=== PATIENT | male | born 1980 | race Caucasian/White ===

== ENCOUNTER 2021-11-10 16:04 | Emergency (ER) | payer MEDICAID ==
[2021-11-10 16:15] VITALS: BP 177/100
--- NOTE | 2021-11-10 16:32 | ED Physician Documentation ---
History of Present Illness - Stated complaint Stated Complaint: VOM/DIARRHEA/ABD PX - Chief complaint Chief Complaint: Abd Pain - Additonal information Additional information: 41-year-old male presents emergency department for evaluation of acute onset upper abdominal pain nausea vomiting and diarrhea. He reports bright red blood per rectum and significant abdominal discomfort. No pertinent past surgical history. Denies that he has NSAID overuse though he occasionally takes Aleve for back pain. No fevers. No history of diverticulitis. In the room he is appearing very uncomfortable guarding his abdomen. Review of Systems Constitutional: denies: Fever, Chills Cardiac: reports: Reviewed and negative Respiratory: reports: Reviewed and negative GI: reports: Abdominal Pain, Nausea, Vomiting, Diarrhea : reports: Reviewed and negative Skin: reports: Reviewed and negative Musculoskeletal: reports: Reviewed and negative Neurologic: reports: Reviewed and negative Psychiatric: reports: Reviewed and negative PD PAST MEDICAL HISTORY - Present Medications Home Medications: Ambulatory Orders Medication Instructions Recorded Confirmed Ondansetron Odt [Zofran] 4 mg TL Q6H PRN #10 tablet 11/10/21 Pantoprazole Sodium [Protonix] 40 mg PO DAILY #30 tab 11/10/21 - Allergies Allergies/Adverse Reactions: Allergies Allergy/AdvReac Type Severity Reaction Status Date / Time Iodinated Contrast Media Allergy Unknown Verified 11/10/21 16:15 latex Allergy Unknown Verified 11/10/21 16:15 morphine Allergy Unknown Verified 11/10/21 16:15 PD ED PE NORMAL - General General: Alert and oriented X 3, Well developed/nourished. No: No acute distress (Appears uncomfortable and in pain) - HEENT HEENT: Atraumatic - Neck Neck: Supple, no meningeal sign, No adenopathy - Cardiac Cardiac: RRR, No murmur - Respiratory Respiratory: No respiratory distress, Clear bilaterally - Abdomen Abdomen: Normal bowel sounds, Soft. No: Non tender (Tenderness in the epigastrium and left lower quadrant left upper quadrant. No guarding or rebound.), Non distended - Rectal Rectal: Other (Chaperoned rectal exam reveals no blood in the vault and no findings of hematochezia) - Back Back: No CVA TTP, No spinal TTP - Derm Derm: Normal color, Warm and dry, No rash - Extremities Extremities: No deformity, No tenderness to palpate, Normal ROM s pain - Neuro Neuro: Alert and oriented X 3, divine healer 2-12 intact Eye Opening: Spontaneous Motor: Obeys Commands Verbal: Oriented GCS Score: 15 - Psych Psych: Normal mood Results - Vitals Vitals: Vital Signs - 24 hr 11/10/21 11/10/21 16:12 16:28 Temperature 36.1 C L Heart Rate 46 L Respiratory 20 18 Rate Blood Pressure 177/100 H O2 Saturation 95 Oxygen O2 Source Room air - Labs Labs: Laboratory Tests 11/10/21 11/10/21 11/10/21 16:28 16:28 16:28 WBC 13.2 H RBC 5.41 Hgb 16.2 Hct 49.7 MCV 91.9 MCH 29.9 MCHC 32.6 RDW 13.1 Plt Count 312 MPV 10.6 Neut # (Auto) 11.6 H Lymph # (Auto) 1.0 L [place] # (Auto) 0.6 Eos # (Auto) 0.0 Baso # (Auto) 0.0 Absolute Nucleated RBC 0.00 Nucleated RBC % 0.0 PT 10.7 INR 1.0 Sodium 142 Potassium 4.1 Chloride 102 Carbon Dioxide 28 Anion Gap 12.0 BUN 17 Creatinine 0.8 Estimated GFR (MDRD) 108 Glucose 150 H Calcium 10.1 Total Bilirubin 0.8 AST 33 ALT 74 H Alkaline Phosphatase 68 Total Protein 8.5 H Albumin 4.7 Globulin 3.8 Albumin/Globulin Ratio 1.2 Lipase 27 - Rads (name of study) CT abd Radiology: Final report received (No acute abdominal or pelvic abnormality) PD MEDICAL DECISION MAKING - ED course Complexity details: reviewed results, re-evaluated patient, considered differential, d/w patient ED course: 41-year-old male presents emergency department for evaluation of acute onset nausea and vomiting as well as upper abdominal pain. He reports bloody stools and vomiting. He does admit to smoking cannabis but does not feel that cannabis is the cause of his vomiting. Denies any sick contacts. No pertinent past surgical history. On presentation he was actively retching. He had reported bloody stools but my digital rectal exam found an empty vault without hematochezia. On exam he was tender in the upper abdomen without guarding or rebound. Screening labs showed a modest leukocytosis. I suspect that this is marginalization the rest of his screening CBC and chemistry was negative. Patient declined to provide us a urine sample today. A CT of the abdomen did not show any worrisome findings. We were able to achieve symptom control by giving IV fluids, Zofran followed by Compazine. He initially got very drowsy with the Dilaudid but on reexam is feeling markedly better. I discussed with the patient that the likely etiology of his symptoms could be viral though cannabis induced vomiting does remain on the differential. Given improved symptoms patient will be discharged with a prescription for some Zofran. We will follow-up closely with primary care provider as we discussed that any hematic emesis or bloody stools should be followed with an EGD or colonoscopy. Otherwise emergent return precautions discussed Departure - Departure Disposition: Home, Self Care Clinical Impression: Vomiting Qualifiers: Vomiting type: unspecified Nausea presence: with nausea Qualified Code(s): R11.2 - Nausea with vomiting, unspecified Abdominal pain Qualifiers: Abdominal location: epigastric Qualified Code(s): R10.13 - Epigastric pain Condition: Stable Record reviewed to determine appropriate education?: Yes Instructions: ED Vomiting Diarrhea Nonspecific Ad Follow-Up: SAMMI BENNETT MD [Primary Care Provider] - Prescriptions: Pantoprazole Sodium [Protonix] 40 mg PO DAILY #30 tab Ondansetron Odt [Zofran] 4 mg TL Q6H PRN #10 tablet PRN Reason: Nausea / Vomiting Comments: Abraham you are seen today in the emergency department for sudden abdominal pain nausea and vomiting. You reported bloody stools and diarrhea however when we did a rectal exam there was no blood. Today in the emergency department your screening blood count was normal. There was no anemia. Your electrolytes were also essentially normal. We did do a CT of your abdomen that did not show any findings of appendicitis, bowel obstruction, inflammation of your gallbladder or stomach. We will gave you some IV fluids as well as 2 nausea medicines which seem to have improved your symptoms markedly. The cause of your nausea and vomiting is likely a virus. I have sent a prescription for Zofran, and nausea medicine to the [facility] in [place]. I do recommend over the next 24 hours that you drink a clear liquid diet. If vomiting better after 12 to 24 hours you can slowly advance your diet with bananas, rice, applesauce and toast. Please discuss this ED visit with your primary care doctor. Any reported bloody vomit or bloody stools should be seen by primary doctor for referral for possible EGD or colonoscopy in which they would place a camera into your throat and your rectum to look for sources of bleeding such as ulcers or polyps. If despite the Zofran at home you find that your vomiting persists, you develop fevers, have severe or different abdominal pain then please return immediately to the ER for second evaluation.
[2021-11-10] MEDS: ONDANSETRON 4 MG/2 ML VIAL IVP STA (16:38)
[2021-11-10] MEDS: HYDROmorphone 1 MG/ML CARPUJECT IVP STA (16:39)
[2021-11-10 16:41] LABS: PT - PROTHROMBIN TIME 10.7 secs (9.9-12.6)
[2021-11-10] MEDS: SODIUM CHLORIDE 0.9% 1,000 ML IV STA (16:41)
[2021-11-10] MEDS: PANTOPRAZOLE 40 MG VIAL IVP STA (16:41)
[2021-11-10 16:48] LABS: ALBUMIN 4.7 g/dL (3.2-5.5); ALBUMIN/GLOBULIN RATIO 1.2 (1.0-2.2); BILIRUBIN,TOTAL 0.8 mg/dL (0.2-1.0); CALCIUM 10.1 mg/dL (8.5-10.3); CREATININE 0.8 mg/dL (0.6-1.2); POTASSIUM 4.1 mmol/L (3.5-5.0); TOTAL PROTEIN 8.5 g/dL (6.7-8.2)
[2021-11-10 16:50] LABS: BASOPHILS % (AUTO) 0.3 %; HCT - HEMATOCRIT 49.7 % (42.0-52.0); HGB - HEMOGLOBIN 16.2 g/dL (14.0-18.0); LYMPHOCYTES % (AUTO) 7.3 %; MEAN CORPUSCULAR HEMOGLOBIN 29.9 pg (27.0-31.0); MEAN CORPUSCULAR HGB CONC 32.6 g/dL (32.0-36.0); MEAN CORPUSCULAR VOLUME 91.9 fL (80.0-94.0); MEAN PLATELET VOLUME 10.6 fL (7.4-11.4); MONOCYTES # (AUTO) 0.6 10^3/uL (0.0-1.0); MONOCYTES % (AUTO) 4.4 %; NEUTROPHILS # (AUTO) 11.6 10^3/uL (1.5-6.6); NEUTROPHILS % (AUTO) 87.7 %; PLT - PLATELET COUNT 312 10^3/uL (130-450); RED BLOOD COUNT 5.41 10^6/uL (4.70-6.10); RED CELL DISTRIBUTION WIDTH 13.1 % (12.0-15.0); WHITE BLOOD COUNT 13.2 x10^3/uL (4.8-10.8)
[2021-11-10] MEDS ORDERED: IOVERSOL 320 50 ML VIAL ONE (17:24)
[2021-11-10] MEDS: PROCHLORPERAZINE 10 MG/2 ML VIAL IVP STA (17:33)
--- NOTE | 2021-11-10 17:55 | CT Report ---
PROCEDURE: Abdomen/Pelvis WO INDICATIONS: n/v/d; bloody stool TECHNIQUE: After the administration of contrast, 5 mm thick sections acquired from the diaphragms to the sym physis. 5 mm thick coronal and sagittal reformats were acquired. For radiation dose reduction, the following was used: automated exposure control, adjustment of mA and/or kV according to patient size . COMPARISON: None. FINDINGS: Image quality: Excellent. ABDOMEN: Lung bases: Lung bases are clear. Heart size is normal. Solid organs: Liver: The liver has no mass or intrahepatic biliary ductal dilatation. The portal vein and hepatic veins are patent. Biliary: The gallbladder has no gallstones, pericholecystic fluid, gallbladder wall thickening, or zazeuta rrounding inflammatory change. Pancreas: The pancreas has no mass or ductal dilatation. No surrounding inflammation. Spleen: Normal size. No mass. Adrenal glands: No hypertrophy or nodules. Kidneys: No obstructive calculus or hydronephrosis. No solid mass. No cystic mass. Bowel: The distal esophagus and stomach are normal. The small bowel has a normal caliber and appeara nce. The terminal ileum is normal. The large bowel has a normal caliber and appearance. The appendi x is normal Free air/free fluid: No free air or free fluid. Abdominal wall: No abdominal wall mass or hernia. Retroperitoneum: No retroperitoneal or mesenteric adenopathy by size criteria. Aorta and inferior ve na cava are normal in size. Lymph nodes: No adenopathy. Bones: No suspicious bony lesions. No vertebral body compression fractures. Degenerative changes are mild multilevel. Degenerative disc disease at L5-S1. PELVIS: Genitourinary: Bladder wall thickness is normal. Miscellaneous: No inguinal hernias or adenopathy. IMPRESSION: No acute abdominal or pelvic abnormality. Reviewed by: Wil Rowe on 11/10/2021 5:53 PM PDT Approved by: Wil Rowe on 11/10/2021 5:53 PM PDT Station ID: [id number]
== END 2021-11-10 18:42 | disposition home or self-care (01) ==
LOC: ED 16:04
DX: R11.2 Nausea with vomiting, unspecified (principal); R10.13 Epigastric pain
CPT/HCPCS: 36415; 74176; 80053; 83690; 85025; 85610; 96374; 96375; 99283; 99284; J1170

== ENCOUNTER 2021-11-12 13:04 | Emergency (ER) | payer MEDICAID ==
[2021-11-12] MEDS: ONDANSETRON ODT 4 MG TABLET TL STA (13:29)
[2021-11-12 13:43] LABS: BASOPHILS # (AUTO) 0.1 10^3/uL (0.0-0.1); BASOPHILS % (AUTO) 0.5 %; EOSINOPHILS % (AUTO) 0.4 %; HCT - HEMATOCRIT 47.1 % (42.0-52.0); HGB - HEMOGLOBIN 15.9 g/dL (14.0-18.0); LYMPHOCYTES # (AUTO) 1.2 10^3/uL (1.5-3.5); LYMPHOCYTES % (AUTO) 12.1 %; MEAN CORPUSCULAR HEMOGLOBIN 30.5 pg (27.0-31.0); MEAN CORPUSCULAR HGB CONC 33.8 g/dL (32.0-36.0); MEAN CORPUSCULAR VOLUME 90.4 fL (80.0-94.0); MEAN PLATELET VOLUME 10.1 fL (7.4-11.4); MONOCYTES # (AUTO) 0.7 10^3/uL (0.0-1.0); MONOCYTES % (AUTO) 7.1 %; NEUTROPHILS # (AUTO) 8.1 10^3/uL (1.5-6.6); NEUTROPHILS % (AUTO) 79.6 %; PLT - PLATELET COUNT 284 10^3/uL (130-450); RED BLOOD COUNT 5.21 10^6/uL (4.70-6.10); RED CELL DISTRIBUTION WIDTH 12.7 % (12.0-15.0); WHITE BLOOD COUNT 10.2 x10^3/uL (4.8-10.8)
[2021-11-12 13:52] LABS: ALBUMIN 4.4 g/dL (3.2-5.5); ALBUMIN/GLOBULIN RATIO 1.3 (1.0-2.2); BILIRUBIN,TOTAL 0.8 mg/dL (0.2-1.0); CALCIUM 9.2 mg/dL (8.5-10.3); CREATININE 0.7 mg/dL (0.6-1.2); POTASSIUM 3.6 mmol/L (3.5-5.0); TOTAL PROTEIN 7.7 g/dL (6.7-8.2)
--- NOTE | 2021-11-12 15:13 | ED Physician Documentation ---
PD HPI ABD PAIN - Stated complaint Stated Complaint: ABD PX/VOMITING - Chief complaint Chief Complaint: Abd Pain - History obtained from History obtained from: Patient - Additional information Additional information: Previously healthy 41-year-old gentleman developed upper abdominal pain and vomiting 2 days ago. Seen by my partner and feeling better after meds here. Work-up was notable for a white count of 13,[address] that was normal. He was unable to fill the prescriptions until today, he had just gone to the pharmacy and the pain and vomiting recurred and he vomited them all up. He pre sents with persistent burning upper abdominal pain which is nonradiating. He denies ongoing marijuana use but did use a few weeks ago. Review of Systems Ten Systems: 10 systems reviewed and negative Constitutional: reports: Sweats. denies: Fever, Chills Throat: denies: Dental pain / toothache, Sore throat Cardiac: denies: Chest pain / pressure, Palpitations Respiratory: denies: Dyspnea, Cough PD PAST MEDICAL HISTORY - Past Medical History Past Medical History: No Cardiovascular: None Respiratory: None Neuro: None Endocrine/Autoimmune: None GI: Other : None HEENT: None Psych: None Musculoskeletal: None Derm: None - Past Surgical History Past Surgical History: No - Present Medications Home Medications: Ambulatory Orders Medication Instructions Recorded Confirmed Ondansetron Odt [Zofran] 4 mg TL Q6H PRN #10 tablet 11/10/21 11/12/21 Pantoprazole Sodium [Protonix] 40 mg PO DAILY #30 tab 11/10/21 11/12/21 HYDROcod/ACETAM 5/325 [[place] 5/325] 1 - 2 tab PO Q6H PRN #10 tablet 11/12/21 - Allergies Allergies/Adverse Reactions: Allergies Allergy/AdvReac Type Severity Reaction Status Date / Time Iodinated Contrast Media Allergy Unknown Verified 11/12/21 13:18 latex Allergy Unknown Verified 11/12/21 13:18 morphine Allergy Unknown Verified 11/12/21 13:18 - Social History Does the pt smoke?: No Smoking Status: Never smoker Does the pt drink ETOH?: No Does the pt have substance abuse?: No - Immunizations Immunizations are current?: Yes - POLST Patient has POLST: No PD ED PE NORMAL - Vitals Vital signs reviewed: Yes - General General: Alert and oriented X 3, Other (uncomfortable) - HEENT HEENT: PERRL, EOMI - Neck Neck: Supple, no meningeal sign, No bony TTP - Cardiac Cardiac: RRR, No murmur - Respiratory Respiratory: No respiratory distress, Clear bilaterally - Abdomen Abdomen: Normal bowel sounds, Soft, Non tender - Back Back: No CVA TTP, No spinal TTP - Derm Derm: Normal color, Warm and dry - Extremities Extremities: No edema, No calf tenderness / cord - Neuro Neuro: Alert and oriented X 3, Normal speech Results - Vitals Vitals: Vital Signs - 24 hr 11/12/21 11/12/21 11/12/21 13:15 15:13 17:06 Temperature 36.6 C 36.7 C Heart Rate 61 54 L 66 Respiratory 20 18 18 Rate Blood Pressure 156/93 H 154/86 H 135/78 H O2 Saturation 99 96 95 Oxygen O2 Source Room air - Labs Labs: Laboratory Tests 11/12/21 11/12/21 11/12/21 13:33 13:33 15:43 WBC 10.2 RBC 5.21 Hgb 15.9 Hct 47.1 MCV 90.4 MCH 30.5 MCHC 33.8 RDW 12.7 Plt Count 284 MPV 10.1 Neut # (Auto) 8.1 H Lymph # (Auto) 1.2 L [place] # (Auto) 0.7 Eos # (Auto) 0.0 Baso # (Auto) 0.1 Absolute Nucleated RBC 0.00 Nucleated RBC % 0.0 Sodium 139 Potassium 3.6 Chloride 101 Carbon Dioxide 26 Anion Gap 12.0 BUN 16 Creatinine 0.7 Estimated GFR (MDRD) 126 Glucose 144 H Calcium 9.2 Total Bilirubin 0.8 AST 23 ALT 54 Alkaline Phosphatase 58 Total Protein 7.7 Albumin 4.4 Globulin 3.3 Albumin/Globulin Ratio 1.3 Lipase 36 Urine Color YELLOW Urine Clarity CLEAR Urine pH 8.0 H Ur Specific [place] 1.020 Urine Protein TRACE Urine Glucose (UA) NEGATIVE Urine Ketones 15 H Urine Occult Blood NEGATIVE Urine Nitrite NEGATIVE Urine Bilirubin NEGATIVE Urine Urobilinogen 0.2 (NORMAL) Ur Leukocyte Esterase NEGATIVE Ur Microscopic Review NOT INDICATED Urine Culture Comments NOT INDICATED Urine Opiates Screen Ur Oxycodone Screen Urine Methadone Screen Ur Propoxyphene Screen Ur Barbiturates Screen Ur Tricyclics Screen Ur Phencyclidine Scrn Ur Amphetamine Screen U Methamphetamines Scrn U Benzodiazepines Scrn Urine Cocaine Screen U Cannabinoids Screen 11/12/21 15:43 WBC RBC Hgb Hct MCV MCH MCHC RDW Plt Count MPV Neut # (Auto) Lymph # (Auto) [place] # (Auto) Eos # (Auto) Baso # (Auto) Absolute Nucleated RBC Nucleated RBC % Sodium Potassium Chloride Carbon Dioxide Anion Gap BUN Creatinine Estimated GFR (MDRD) Glucose Calcium Total Bilirubin AST ALT Alkaline Phosphatase Total Protein Albumin Globulin Albumin/Globulin Ratio Lipase Urine Color Urine Clarity Urine pH Ur Specific [place] Urine Protein Urine Glucose (UA) Urine Ketones Urine Occult Blood Urine Nitrite Urine Bilirubin Urine Urobilinogen Ur Leukocyte Esterase Ur Microscopic Review Urine Culture Comments Urine Opiates Screen NEGATIVE Ur Oxycodone Screen NEGATIVE Urine Methadone Screen NEGATIVE Ur Propoxyphene Screen NEGATIVE Ur Barbiturates Screen NEGATIVE Ur Tricyclics Screen NEGATIVE Ur Phencyclidine Scrn NEGATIVE Ur Amphetamine Screen NEGATIVE U Methamphetamines Scrn NEGATIVE U Benzodiazepines Scrn NEGATIVE Urine Cocaine Screen NEGATIVE U Cannabinoids Screen POSITIVE H PD MEDICAL DECISION MAKING - ED course ED course: 41-year-old gentleman who presents with upper abdominal pain and vomiting. Very benign examination. Initial round of medications was Toradol and Reglan without much help but subsequently feeling much better after a GI cocktail, Dilaudid and Haldol and requesting discharge. He states that he has not used marijuana in several weeks but his urine drug screen is persistently positive and I discussed with him that if he was using marijuana his symptoms may be from that. Otherwise to consider following up with primary care for GI referral for upper endoscopy if symptoms are persistent. Departure - Departure Disposition: 01 Home, Self Care Clinical Impression: Gastritis Qualifiers: Gastritis type: unspecified gastritis Chronicity: acute Gastritis bleeding: presence of bleeding unspecified Qualified Code(s): K29.00 - Acute gastritis without bleeding Condition: Good Record reviewed to determine appropriate education?: Yes Instructions: ED Gastritis Prescriptions: HYDROcod/ACETAM 5/325 [[place] 5/325] 1 - 2 tab PO Q6H PRN #10 tablet PRN Reason: Pain Comments: I sent your prescriptions electronically to [facility] in [place]. Most likely this represents ulcer or gastritis, that said despite not taking marijuana in the last few weeks you were still positive for that and marijuana can cause problems like this. Return for new or worsening symptoms. Follow-up with your primary care physician, next available appointment. You should still take the prescriptions you were given the other day as well as what I am giving you. I am prescribing a short course of narcotic pain medication for you. These are potentially dangerous and addictive medications that should be used carefully. These medications may constipate you. Take an [id number] stool softener (docusate) twice daily with plenty of water while taking these medications. If you go 24 hours without a bowel movement, take [id number] miralax, per package instructions. Do not drink or drive while taking these medications. If you received narcotic or sedating medications while in the emergency department, do not drive for 24 hours. Store this medication in a safe, secure place and out of reach of children. It is a violation of federal law to give or sell this medication to another person or to use in a manner other than prescribed. The ED will not refill narcotic prescriptions, including prescriptions lost or stolen. To dispose of unwanted medications: 1. [facility] at [address] in [place] has a medication drop box. They accept prescription medications (in pill form) Saturday through Saturday 9:00 a.m. to 5:00 p.m. 2. The [facility] [employer] accepts prescription medications (in pill form only) for disposal year round. Call for more information. 3. Contact the [facility] for the next [facility] sponsored prescription drug collection event. , [phone], or [phone]; Note that many narcotic pain relievers also contain Tylenol/acetaminophen. P lease ensure that your total dose of acetaminophen from all sources does not exceed 3 g (3000 mg) per day. Discharge Date/Time: 11/12/21 17:07
[2021-11-12] MEDS: METOCLOPRAMIDE 10 MG/2 ML VIAL IVP STA (15:25)
[2021-11-12] MEDS: SODIUM CHLORIDE 0.9% 1,000 ML IV STA (15:25)
[2021-11-12] MEDS: KETOROLAC 15 MG/ML VIAL IVP STA (15:26)
[2021-11-12 15:50] LABS: BILIRUBIN,URINE NEGATIVE (NEGATIVE); GLUCOSE, URINE (UA) NEGATIVE (NEGATIVE); KETONES,URINE (UA) 15 mg/dL (NEGATIVE); LEUKOCYTE ESTERASE, URINE NEGATIVE (NEGATIVE); NITRITE,URINE NEGATIVE (NEGATIVE); OCCULT BLOOD,URINE NEGATIVE (NEGATIVE); PROTEIN,URINE TRACE mg/dL (NEGATIVE); UROBILINOGEN,URINE 0.2 (NORMAL) E.U./dL (NORMAL)
[2021-11-12 15:57] LABS: CLARITY,URINE CLEAR (CLEAR)
[2021-11-12 15:59] LABS: MUDS CUTOFF CONCENTRATIONS CUTOFF CONC BELOW:
[2021-11-12] MEDS: HYDROmorphone 1 MG/ML CARPUJECT IVP STA (16:08)
[2021-11-12] MEDS: LIDOCAINE VISCOUS 2% 15 ML UDC MM STA (16:10)
[2021-11-12] MEDS: MAG HYDROX/AL HYDROX/SIMETH 30 ML UDC PO STA (16:10)
[2021-11-12 16:11] LABS: AMPHETAMINE SCREEN,URINE NEGATIVE (NEGATIVE); BARBITURATE SCREEN,UR NEGATIVE (NEGATIVE); BENZODIAZEPINES SCREEN, URINE NEGATIVE (NEGATIVE); COCAINE SCREEN URINE NEGATIVE (NEGATIVE); METHADONE SCREEN, URINE NEGATIVE (NEGATIVE); METHAMPHETAMINES SCREEN, URINE NEGATIVE (NEGATIVE); OPIATE SCREEN, URINE NEGATIVE (NEGATIVE); OXYCODONE SCREEN, URINE NEGATIVE (NEGATIVE); PROPOXYPHENE SCREEN, URINE NEGATIVE (NEGATIVE); THC CANNABINOID SCREEN, URINE POSITIVE (NEGATIVE); TRICYCLIC ANTIDEPRESSANT,URINE NEGATIVE (NEGATIVE)
[2021-11-12] MEDS: HALOPERIDOL 5 MG/ML VIAL IVP ONE (16:12)
[2021-11-12 17:07] VITALS: BP 135/78
== END 2021-11-12 17:07 | disposition home or self-care (01) ==
LOC: ED 13:04
DX: K29.00 Acute gastritis without bleeding (principal)
CPT/HCPCS: 36415; 80053; 80306; 81003; 83690; 85025; 96374; 96375; 99282; 99283; A9270; J1170; J2765; Q0162; 81001; 87086